=== PATIENT | male | born 1935 | race Caucasian/White ===

== ENCOUNTER 2016-04-04 18:12 | Emergency (ER) | payer OTHER, MEDICARE ==
[~2016-04-04] VITALS: Ht 170.2 cm; Wt 74.8 kg
--- NOTE | 2016-04-04 19:27 | ED UPPER/LOWER EXTREMITY COMPL ---
History of Present Illness General Chief Complaint: Lower Extremity Problems Stated Complaint: RGHT KNEE PAIN, DX WITH BLOOD CLOT TODAY Source: patient, family Exam Limitations: no limitations Vital Signs & Intake/Output Vital Signs & Intake/Output Vital Signs Date Time Temp Pulse Resp B/P Pulse O2 O2 Flow FiO2 Ox Delivery Rate 04/04 2132 Room Air 04/04 2124 98.5 88 16 145/70 04/04 183 97.3 99 18 149/88 98 Room Air Allergies Coded Allergies: NO KNOWN ALLERGIES (01/03/12) Reconcile Medications Apixaban (Eliquis) 5 MG TABLET 1 TAB PO BID dvt take 2 tabs bid x 7 days then 1 tab po bid after that. Aspirin (Ecotrin*) 81 MG TABLET.DR 1 TAB PO QAM HEART/BLOOD (Reported) Atorvastatin Calcium 20 MG TABLET 1 TAB PO DAILY CHOLESTEROL (Reported) Azelastine HCl 137 MCG (0.1 %) SPRAY.PUMP 2 SPRAY NASB BID ALLERGIES ( Reported) Calcium Acetate 667 MG CAPSULE 2 CAP PO TID PHOSPHATE IN BLOOD (Reported) Epoetin Harvey (Epogen) (Unknown Strength) VIAL (Unknown Dose) AD PRN UNKNOWN ( Reported) Finasteride 5 MG TABLET 1 TAB PO DAILY PROSTATE (Reported) Fluticasone Propionate 50 MCG/ACTUATION SPRAY.SUSP 2 SPRAY NASB QAM ALLERGIES (Reported) Lactose-Reduced Food (Ensure High Protein) (Unknown Strength) LIQUID (Unknown Dose) PO PRN SUPPLEMENT (Reported) Midodrine HCl 10 MG TABLET 1 TAB PO AD PRN BP (Reported) Olanzapine 7.5 MG TABLET 1 TAB PO QPM MENTAL HEALTH (Reported) Omeprazole 40 MG CAPSULE.DR 1 CAP PO BID GI (Reported) Protein Supplement (Procel) (Unknown Strength) PACKET (Unknown Dose) PO AD PRN SUPPLEMENT (Reported) Tamsulosin HCl 0.4 MG CAP.ER.24H 1 CAP PO QPM PROSTATE (Reported) Triage Note: PT TO TRIAGE SENT BY FOR +DVT TO RLE. PT C/O R KNEE PAIN 8/10 AND R KNEE SWELLING STARTED 2 WEEKS AGO. VSS. Triage Nurses Notes Reviewed? yes Onset: Gradual Duration: week(s): (2) Timing: no prior history Severity: moderate Severity Numbers: 6 Pain/Injury Location: Right: Knee. Method of Injury: unknown Modifying Factors: Improves With: movement. HPI: Patient is a 80-year-old male who has chronic renal failure, on dialysis Friday presenting to the emergency Department chief complaint of right knee pain and tingling for the past 2 weeks. No known injury. Also noticed some swelling. Symptoms currently moderate. Worse with ambulation and range of motion. Denies any calf pain. No numbness or tingling. He saw his primary care physician today who ordered an x-ray and ultrasound. He was called back this evening and told that he had a blood clot in his right leg and that he should come to the emergency for evaluation. No history of blood clots. Patient is not on any anticoagulation. Denies shortness of breath chest pain or palpitation. No nausea or vomiting. Denies taking anything for pain at home. (RUSS SORIANO) Past History Travel History Traveled to [place] past 21 day No Medical History Any Pertinent Medical History? see below for history Renal: chronic kidney disease Psychiatric: schizophrenia Pneumonia Vaccine: 11/11/11 Influenza Vaccine: 11/11/11 Surgical History Surgical History: non-contributory Psychosocial History Who do you live with Patient/Self What is your primary language Yi Tobacco Use: Never used Family History Hx Contributory? No (RUSS SORIANO) Review of Systems Review of Systems Constitutional: Reports: no symptoms. Comments Review of systems: See HPI, All other systems negative. Constitutional, no chills fever or weight loss HEENT: No visual changes no sore throat no congestion Cardiovascular: No chest pain ,palpitation Skin, no jaundice no rashes Respiratory: No dyspnea cough sputum or hemoptysis GI: No nausea no vomiting : No dysuria No hematuria Muscle skeletal: no back pain, no neck pain, Neurologic: No numbness no confusion Psych: No stress anxiety Immunology: No splenectomy or history of AIDS (RUSS SORIANO) Physical Exam Physical Exam General Appearance: well developed/nourished, no apparent distress, alert, awake , comfortable Comments: Well-developed well-nourished person in no acute distress HEENT: Pupils equally round and reactive to light and accommodation. Nose is atraumatic. Neck: Normal inspection Back: Nontender Cardiovascular: Regular rate and rhythms no murmurs rubs or gallops, normal JVP Respiratory: Chest nontender. No respiratory distress.breath sounds clear to auscultation bilaterally Extremity: Edema noted over the right patella extending down to the upper calf. Mild tenderness to palpation in this area. Pedal pulses are 2+ bilaterally. No pitting edema enlarged ovaries bilaterally. There is an old ecchymotic lesion approximately 6 cm in diameter noted over the left stokes. Limited range of motion of right knee secondary to pain. No crepitus palpated over the right patella. Negative anterior and posterior drawer test on the right knee. Neuro: Alert oriented x3, motor sensory normal Skin: No appreciable rash on exposed skin, skin is warm and dry. Psych: Mood and affect is normal, memory and judgment is normal. (ARLETH LUNA,RUSS) Progress Differential Diagnosis: contusion, dislocation, DVT, sprain, tendon injury Plan of Care: Orders Procedure Date/time Status PARTIAL THROMBOPLASTIN TIME 04/04 1926 Complete PROTHROMBIN TIME 04/04 1926 Complete COMPREHENSIVE METABOLIC PANEL 04/04 1926 Complete CBC WITHOUT DIFFERENTIAL 04/04 1926 Complete Laboratory Tests 04/04/161942: PT 12.1, INR 1.15, APTT 31, CBC w Diff NO MAN DIFF REQ, RBC 3.71 L, MCV 91.5, MCH 30.6, RDW 14.8 H, MPV 7.3 L, Gran % 69.4, Lymphocytes % 18.2 L, Monocytes % 9.9 H, Eosinophils % 1.8, Basophils % 0.7, Absolute Granulocytes 5.5, Absolute Lymphocytes 1.4, Absolute Monocytes 0.8 H, Absolute Eosinophils 0.1, Absolute Basophils 0.1, PUBS MCHC 33.4 04/04/161926: Anion Gap 17 H, Estimated GFR 5 L, BUN/Creatinine Ratio 5.9 L, Glucose 95, Calcium 8.7, Total Bilirubin 0.5, AST 14 L, ALT 23, Alkaline Phosphatase 85, Total Protein 6.8, Albumin 3.8, Globulin 3.0, Albumin/Globulin Ratio 1.3 Diagnostic Imaging: Viewed by Me: Ultrasound. Discussed w/RAD: Ultrasound. Radiology Impression: PRESENT AGE: 80 PATIENT ACCOUNT NO: [id number] : 37 LOCATION: [facility] ORDERING PHYSICIAN: RUSS LUNA SERVICE DATE: -1926 EXAM TYPE: US - US-UNILATERAL VENOUS DOPPLER EXAMINATION: US TRIPLEX LOWER EXTREMITY, RIGHT CLINICAL INFORMATION: Right lower extremity pain and swelling. COMPARISON: 12/18/2011 TECHNIQUE: Color-flow triplex imaging with spectral analysis and compression Doppler were performed on the right lower extremity. FINDINGS: Partially occlusive short segment thrombus is seen within the proximal femoral vein. Otherwise, respiratory variation, normal compression and augmented flow are noted throughout the lower extremity. The visualized common femoral vein, popliteal vein and midcalf peroneal and posterior tibial venous segments show no evidence of deep venous thrombosis. There is no Chavez's cyst. IMPRESSION: Partially occlusive thrombus within the proximal femoral vein. The remainder of the venous system is patent. This critical result was discussed with RUSS REINOSO MD by telephone at 04/04/2016 8:35 PM and it was ascertained that the content and urgency of the report was understood at the time of direct communication. DICTATED BY: RADHA DOWNEY MD DATE/TIME DICTATED:04/04/162030 SPOOLING SUPERVISOR:AMBREEN DATE/TIME TRANSCRIBED:2030 CONFIDENTIAL, DO NOT COPY WITHOUT APPROPRIATE AUTHORIZATION. < Electronically signed in Other Vendor System> SIGNED BY: RADHA DOWNEY MD 04/04/162042 Comments: 04/04/2016 7:41:41 PM patient was diagnosed with DVT today. They did not have the report, unable to obtain report at this time secondary to after hours. Patient declined pain medication at this time. We will assess CBC, CMP to check baseline kidney function. Whistle also get baseline coagulation studies. We will repeat the ultrasound of the right lower extremity to assess blood clot. 04/04/2016 9:12:[address] aguayo, recommending oral anticoagulation, follow up outpatient. Patient and family members understand plan. Discussed with Dr. edwards and he agrees as well. (ARLETH LUNA,RUSS) Departure Departure Time of Disposition: 2108 Disposition: HOME OR SELF CARE Condition: Stable Clinical Impression Primary Impression: Deep vein thrombophlebitis of right leg Referrals: LAURIE RICKS MD (PCP/Family) JOSE ALEJANDRO AGUAYO MD Additional Instructions: Follow-up with vascular, call tomorrow to make an appointment. Take elequis as prescribed. You are going to take 10 mg twice a day for 7 days and then after that urine to be taking 5 mg twice a day. Departure Forms: Customer Survey General Discharge Information Prescriptions: Current Visit Scripts Apixaban (Eliquis) 1 TAB PO BID #60 TAB take 2 tabs bid x 7 days then 1 tab po bid after that. (ARLETH LUNA,RUSS) PA/RELISH MAKER Co-Sign Statement Statement: ED Attending supervision documentation- x I saw and evaluated the patient. I have also reviewed all the pertinent lab results and diagnostic results. I agree with the findings and the plan of care as documented in the PA's/RELISH MAKER's documentation. [] I have reviewed the ED Record and agree with the PA's/RELISH MAKER's documentation. [] Additions or exceptions (if any) to the PAs/RELISH MAKER's note and plan are summarized below: [] (IRENA GARG,MARY)
[2016-04-04] MEDS ORDERED: ATORVASTATIN CA20 M1 PO (19:48)
[2016-04-04] MEDS ORDERED: AZELASTINE137 MCG/0. NASB (19:49)
[2016-04-04] MEDS ORDERED: FLUTICASONE PRO16 GM NASB (19:49)
[2016-04-04] MEDS ORDERED: OMEPRAZOLE40 M1 PO (19:49)
[2016-04-04] MEDS ORDERED: CALCIUM ACETAT667 M3 PO (19:50)
[2016-04-04] MEDS ORDERED: MIDODRINE HCL10 M1 PO (19:51)
[2016-04-04] MEDS ORDERED: FINASTERIDE5 M1 PO (19:51)
[2016-04-04] MEDS ORDERED: OLANZAPINE7.5 M1 PO (19:51)
[2016-04-04] MEDS ORDERED: TAMSULOSIN HCL0.4 M1 PO (19:52)
[2016-04-04] MEDS ORDERED: EPOGEN10000 UNIT (19:53)
[2016-04-04] MEDS ORDERED: ASPIRIN EC81 M1 PO (19:54)
[2016-04-04 19:55] LABS: ABSOLUTE BASOPHIL COUNT 0.1 /CUMM (0.0-0.2); ABSOLUTE EOSINOPHIL COUNT 0.1 /CUMM (0.0-0.7); ABSOLUTE GRANULOCYTE CT 5.5 /CUMM (1.4-6.5); ABSOLUTE LYMPH COUNT 1.4 /CUMM (1.2-3.4); ABSOLUTE MONOCYTE COUNT 0.8 /CUMM (0.10-0.60); BASOPHIL % 0.7 % (0.0-2.0); EOSINOPHIL % 1.8 % (0-5); GRANULOCYTE % 69.4 % (42.2-75.2); MEAN CORPUSCULAR HGB 30.6 PG (27.0-31.0); MEAN CORPUSCULAR HGB CONC 33.4 G/DL (33.0-37.0); MEAN CORPUSCULAR VOLUME 91.5 FL (80.0-94.0); MEAN PLATELET VOLUME 7.3 FL (7.4-10.4); PLATELET COUNT 213 /CUMM (130-400); RBC DISTRIBUTION WIDTH 14.8 % (11.5-14.5); RED BLOOD CELL CT 3.71 /CUMM (4.70-6.10); WHITE BLOOD CELL COUNT 7.9 /CUMM (4.8-10.8)
[2016-04-04] MEDS ORDERED: ENSURE HIGH PR PO (19:55)
[2016-04-04] MEDS ORDERED: PROCEL1 EACH PO (19:56)
[2016-04-04 20:07] LABS: PT 12.1 SEC (9.4-12.5); PTT 31 SEC (25-37)
--- NOTE | 2016-04-04 20:43 | ULTRASOUND REPORT ---
EXAMINATION: US TRIPLEX LOWER EXTREMITY, RIGHT CLINICAL INFORMATION: Right lower extremity pain and swelling. COMPARISON: 12/18/2011 TECHNIQUE: Color-flow triplex imaging with spectral analysis and compression Doppler were performed on the right lower extremity. FINDINGS: Partially occlusive short segment thrombus is seen within the proximal femoral vein. Otherwise, respiratory variation, normal compression and augmented flow are noted throughout the lower extremity. The visualized common femoral vein, popliteal vein and midcalf peroneal and posterior tibial venous segments show no evidence of deep venous thrombosis. There is no Chavez's cyst. IMPRESSION: Partially occlusive thrombus within the proximal femoral vein. The remainder of the venous system is patent. This critical result was discussed with RUSS REINOSO MD by telephone at 04/04/2016 8:35 PM and it was ascertained that the content and urgency of the report was understood at the time of direct communication.
[2016-04-04] MEDS ORDERED: ELIQUIS5 M1 PO (21:11)
[2016-04-04 21:25] VITALS: BP 145/70
== END 2016-04-04 21:35 ==
LOC: ERH 18:12
PROVIDERS: Physician Assistant
DX: I80.291 Phlebitis and thrombophlebitis of other deep vessels of right lower extremity (principal)